=== PATIENT | female | born 1990 | race Caucasian/White ===

== ENCOUNTER 2019-09-09 19:29 | Emergency (ER) | payer SELFPAY ==
[2019-09-09] MEDS ORDERED: Sodium Chloride 0.9% 1,000 ML IV STA (19:43)
[2019-09-09] MEDS ORDERED: HYDROmorphone 0.5 MG/0.5 ML Syringe IVPUSH ONE (19:43)
[2019-09-09] MEDS ORDERED: Sodium Chloride 0.9% 10 ML Syringe FLUSH PRN (19:43)
--- NOTE | 2019-09-09 19:50 | EDM.PDOC ---
ED HPI GENERAL MEDICAL PROBLEM - General Chief Complaint: Abdominal Pain Stated Complaint: [facility] Time Seen by Provider: 09/09/19 19:33 Source of Information: Reports: Patient, EMS History Limitations: Reports: No Limitations - History of Present Illness INITIAL COMMENTS - FREE TEXT/NARRATIVE: The patient presents by [facility] for abdominal pain, nausea and vomiting. The patient says she started not feeling well about a week ago. She had to run down to [place] where she is from to sign a consent for her son. She had some nausea and upset stomach on the way down and again on the way up. She then developed fever and chills. She had more nausea and vomiting tonight and she has left sided abdominal pain. She says she was seen at a clinic and no work up was done. She had urgency with urination today and could only go a little and there was some blood. She has a slight cough but she smokes and that is normal for her. She has no chest pain or shortness of breath. She has no gallbladder but she still has an appendix. Onset: Gradual Duration: Week(s): (1) Location: Reports: Abdomen (left lower abdomen) Quality: Reports: Ache Severity: Moderate Improves with: Reports: None Worsens with: Reports: None Associated Symptoms: Reports: Cough, Fever/Chills, Nausea/Vomiting. Denies: Chest Pain, Headaches, Shortness of Breath Treatments LEGAL INTERNSHIP: Reports: Other (see below) Other Treatments LEGAL INTERNSHIP: zofran;fentanyl per ambulance Left Lower Abdomen Pain Score (Numeric/FACES): 0 - Related Data Allergies Allergy/AdvReac Type Severity Reaction Status Date / Time No Known Allergies Allergy Verified 09/09/19 19:38 Home Meds: Home Meds Cephalexin [Keflex] 500 mg PO BID #14 capsule 09/09/19 [Rx] ED ROS GENERAL - Review of Systems Review Of Systems: See Below Constitutional: Reports: Fever, Chills, Malaise, Weakness, Fatigue HEENT: Reports: No Symptoms Respiratory: Reports: Cough. Denies: Shortness of Breath Cardiovascular: Reports: No Symptoms Endocrine: Reports: No Symptoms GI/Abdominal: Reports: Abdominal Pain, Nausea, Vomiting. Denies: Diarrhea : Reports: Hematuria Musculoskeletal: Reports: No Symptoms ED EXAM, GI/ABD - Physical Exam Exam: See Below Exam Limited By: No Limitations General Appearance: Alert, No Apparent Distress Ears: Normal External Exam Nose: Normal Inspection Head: Atraumatic, Normocephalic Neck: Normal Inspection Respiratory/Chest: No Respiratory Distress, Lungs Clear, Normal Breath Sounds Cardiovascular: Regular Rate, Rhythm, No Edema, No Murmur GI/Abdominal Exam: Soft, No Organomegaly, No Mass, Tender (Mild tenderness to the left lower abdomen) Back Exam: Normal Inspection Extremities: Normal Inspection Course - Vital Signs Last Recorded V/S: Last Vital Signs Temp 97.8 F 09/09/19 19:37 Pulse 101 H 09/09/19 19:37 Resp 20 09/09/19 19:37 BP 109/48 L 09/09/19 19:37 Pulse Ox 96 09/09/19 19:37 - Orders/Labs/Meds Orders: Active Orders 24 hr Category Date Time Status Peripheral IV Care [RC] . DIRECTED Care 09/09/19 19:43 Active Sodium Chloride 0.9% [Saline Flush] Med 09/09/19 19:43 Active 10 ml FLUSH ASDIRECTED PRN Peripheral IV Insertion Adult [OM.PC] Stat Oth 09/09/19 19:43 Ordered Medication Orders Sodium Chloride (Saline Flush) 10 ml FLUSH ASDIRECTED PRN PRN Reason: Keep Vein Open Last Admin: 09/09/19 19:51 Dose: 10 ml Labs: Laboratory Tests 09/09/19 09/09/19 09/09/19 Range/Units 19:41 19:50 19:50 WBC 10.25 H (3.98-10.04) K/mm3 RBC 3.90 L (3.98-5.22) M/mm3 Hgb 10.2 L (11.2-15.7) gm/dl Hct 32.9 L (34.1-44.9) % MCV 84.4 (79.4-94.8) fl MCH 26.2 (25.6-32.2) pg MCHC 31.0 L (32.2-35.5) g/dl RDW Std Deviation 48.8 H (36.4-46.3) fL Plt Count 203 (182-369) K/mm3 MPV 10.0 (9.4-12.3) fl Neut % (Auto) 83.8 H (34.0-71.1) % Lymph % (Auto) 7.8 L (19.3-51.7) % [place] % (Auto) 7.7 (4.7-12.5) % Eos % (Auto) 0.5 L (0.7-5.8) Baso % (Auto) 0.1 (0.1-1.2) % Neut # (Auto) 8.59 H (1.56-6.13) K/mm3 Lymph # (Auto) 0.80 L (1.18-3.74) K/mm3 [place] # (Auto) 0.79 H (0.24-0.36) K/mm3 Eos # (Auto) 0.05 (0.04-0.36) K/mm3 Baso # (Auto) 0.01 (0.01-0.08) K/mm3 Manual Slide Review Abnormal smear Sodium 137 (136-145) mEq/L Potassium 3.9 (3.5-5.1) mEq/L Chloride 104 (98-107) mEq/L Carbon Dioxide 24 (21-32) mEq/L Anion Gap 12.9 (5-15) BUN 17 (7-18) mg/dL Creatinine 1.0 (0.55-1.02) mg/dL Est Cr Clr Drug Dosing 85.24 mL/min Estimated GFR (MDRD) > 60 (>60) mL/min BUN/Creatinine Ratio 17.0 (14-18) Glucose 133 H (74-106) mg/dL Calcium 8.5 (8.5-10.1) mg/dL Total Bilirubin 0.2 (0.2-1.0) mg/dL AST 20 (15-37) U/L ALT 20 (14-59) U/L Alkaline Phosphatase 72 (46-116) U/L Total Protein 6.9 (6.4-8.2) g/dl Albumin 3.0 L (3.4-5.0) g/dl Globulin 3.9 gm/dL Albumin/Globulin Ratio 0.8 L (1-2) Lipase 75 (73-393) U/L Urine Color Yellow (Yellow) Urine Appearance Clear (Clear) Urine pH 6.0 (5.0-8.0) Ur Specific [place] 1.020 (1.005-1.030) Urine Protein 1+ H (Negative) Urine Glucose (UA) Negative (Negative) Urine Ketones Trace H (Negative) Urine Occult Blood 1+ H (Negative) Urine Nitrite Positive H (Negative) Urine Bilirubin Negative (Negative) Urine Urobilinogen 0.2 (0.2-1.0) Ur Leukocyte Esterase 1+ H (Negative) Urine RBC 5-10 H (0-5) /hpf Urine WBC 5-10 H (0-5) /hpf Urine WBC Clumps Few (NOT SEEN) /hpf Ur Squamous Epith Cells 0-5 (0-5) /hpf Urine Bacteria Few (FEW) /hpf Urine Mucus Few (FEW) /hpf Meds: Medications Generic Name Dose Route Start Last Admin Trade Name Freq PRN Reason Stop Dose Admin Sodium Chloride 10 ml 09/09/19 19:43 09/09/19 19:51 Saline Flush FLUSH 10 ml ASDIRECTED PRN Administration Keep Vein Open Discontinued Medications Generic Name Dose Route Start Last Admin Trade Name Freq PRN Reason Stop Dose Admin Hydromorphone HCl 0.5 mg 09/09/19 19:43 09/09/19 19:51 Dilaudid IVPUSH 09/09/19 19:44 0.5 mg ONETIME ONE Administration Sodium Chloride 1,000 mls @ 1,000 mls/hr 09/09/19 19:43 09/09/19 19:51 Normal Saline IV 09/09/19 20:42 1,000 mls/hr .BOLUS STA Administration Ceftriaxone Sodium 1 gm/ 100 mls @ 200 mls/hr 09/09/19 21:32 09/09/19 21:45 Sodium Chloride IV 09/09/19 22:01 200 mls/hr ONETIME ONE Administration Metoclopramide HCl 10 mg 09/09/19 19:56 09/09/19 19:59 Reglan IVPUSH 09/09/19 19:57 10 mg ONETIME ONE Administration Metoclopramide HCl Confirm 09/09/19 19:58 09/09/19 20:54 Reglan Administered 09/09/19 19:59 Not Given Dose 10 mg .ROUTE .STK-MED ONE - Re-Assessments/Exams Free Text/Narrative Re-Assessment/Exam: 09/09/19 20:15 I ordered an IV NS 1L bolus, reglan 10mg IV, dilaudid 0.5mg IV, labs, and UA. 09/09/19 22:22 Her WBC was slightly elevated at 10.25. Her Hgb was low at 10.2. Her CMP was normal. Her lipase was normal. Her UA was positive for UTI. I have ordered rocephin IV. I will get her on some keflex. Departure - Departure Time of Disposition: 22:25 Disposition: Home, Self-Care 01 Condition: Good Clinical Impression: UTI (urinary tract infection) Qualifiers: Urinary tract infection type: acute cystitis Hematuria presence: with hematuria Qualified Code(s): N30.01 - Acute cystitis with hematuria - Discharge Information *PRESCRIPTION DRUG MONITORING PROGRAM REVIEWED*: No *COPY OF PRESCRIPTION DRUG MONITORING REPORT IN PATIENT ZINA: No Prescriptions: Cephalexin [Keflex] 500 mg PO BID #14 capsule Referrals: PCP,Unknown [Primary Care Provider] - Michelle White PA-C [[employer]] - 1 Week Forms: ED Department Discharge Additional Instructions: Drink plenty of fluid. Take motrin or tylenol for pain. Take the keflex 2 times per day for 7 days. Please return if you are worse. - My Orders Last 24 Hours: My Active Orders 09/09/19 19:43 Peripheral IV Care [RC] . DIRECTED Sodium Chloride 0.9% [Saline Flush] 10 ml FLUSH ASDIRECTED PRN Peripheral IV Insertion Adult [OM.PC] Stat - Assessment/Plan Last 24 Hours: My Active Orders 09/09/19 19:43 Peripheral IV Care [RC] . DIRECTED Sodium Chloride 0.9% [Saline Flush] 10 ml FLUSH ASDIRECTED PRN Peripheral IV Insertion Adult [OM.PC] Stat
[2019-09-09] MEDS ORDERED: Metoclopramide 10 MG/2 ML SDV IVPUSH ONE (19:56)
[2019-09-09] MEDS ORDERED: Metoclopramide 10 MG/2 ML SDV ONE (19:58)
[2019-09-09] MEDS ORDERED: cefTRIAXone 1 GM in Sodium Chloride 0.9% 100 ML IV ONE (21:32)
== END 2019-09-09 22:41 | disposition home or self-care (01) ==
LOC: JD.ED 19:29
DX: N30.01 Acute cystitis with hematuria (principal)
CPT/HCPCS: 36415; 80053; 81001; 83690; 85025; 96361; 96365; 96375; 99284; J0696; J1170; J2765; J7030; J7040; 99283